=== PATIENT | female | born 1980 | race Caucasian/White ===

== ENCOUNTER 2016-11-20 12:58 | Inpatient (IN) ==
[2016-11-20 13:39] LABS: Basophils # 0.1 10*3/uL (0.0-0.2); Basophils % 0.5 % (0.0-0.8); Eosinophils % 0.4 % (0.00-10.9); Hemoglobin 12.9 GM/DL (12.0-16.0); Immature Granulocytes % 0.4 %; Immature Granulocytes Absolute 0.04 #; Lymphocytes # 1.4 10*3/uL (1.4-4.0); Lymphocytes % 12.8 % (21.3-54.2); Mean Corpuscular HGB Conc 34.9 GM/DL (32-36); Mean Corpuscular Hemoglobin 32 PG (27-34); Mean Corpuscular Volume 91.8 FL (87-102); Mean Platelet Volume 9.2 FL (9.6-12.0); Monocytes % 9.3 % (1.7-12.7); Neutrophils # 8.6 10*3/uL (1.4-7.4); Neutrophils % 76.6 % (38.7-73.9); Platelet Count 286 T/CUMM (130-400); Red Blood Count 4.03 MC/CUMM (3.8-5.5); Red Cell Distribution Width 13.6 % (9.3-17.3); White Blood Count 11.2 T/CUMM (4-12)
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
[2016-11-20] MEDS ORDERED: ONDANSETRON 4 MG/2 ML VIAL ONE (13:52)
[2016-11-20] MEDS ORDERED: MORPHINE 2 MG/1 ML SYRINGE ONE (13:52)
[2016-11-20 13:53] LABS: Amorphous Crystals,Urine Occasional /HPF (Few); Apearance,Urine CLOUDY (Clear); Bilirubin,Urine Negative (Negative); Blood, Urine Negative (Negative); Glucose,Urine (UA) Negative (Negative); Ketones,Urine 5 mg/dL (Negative); Nitrite,Urine Negative (Negative); Protein,Urine Negative; RBC,Urine 3 /HPF (0-4); Urine Color Amber (Yellow); Urine Specific Gravity 1.016 (1.001-1.035); Urine Urobilinogen < 2.0 EU/DL (0.2-1.0)
[2016-11-20 13:59] LABS: Alanine Aminotransferase 25 U/L (13-56); Albumin 4.2 G/DL (3.4-5.0); Alkaline Phosphatase 66 U/L (45-117); Amylase 28 U/L (25-115); Aspartate Amino Transferase 27 U/L (0-37); Blood Urea Nitrogen 15 MG/DL (7-18); Glucose 108 MG/DL (74-106); INR 1.1; Osmolality,Calculated 278.5 MOS/KG (273-304); PT Patient Result 11.3 SECS; Partial Thromboplastin Time 26.5 SECS (0-40); Potassium 3.5 MMOL/L (3.5-5.1); Sodium 139 MMOL/L (136-145)
[2016-11-20] MEDS ORDERED: ONDANSETRON 4 MG/2 ML VIAL IV STA (14:02)
[2016-11-20] MEDS ORDERED: MORPHINE 2 MG/1 ML SYRINGE IV STA (14:03)
[2016-11-20] MEDS ORDERED: DIPH/TET/ACEL PERT BOOSTER VACCINE 0.5 ML VIAL IM ONE ×2 (14:04→14:12)
[2016-11-20 14:07] LABS: Barbiturates Screen,Urine Negative (Negative); Benzodiazepines Screen,Urine Positive (Negative); Cannabinoid Screen,Urine Positive (Negative); Opiate Screen,Urine Positive (Negative); Phencyclidine Screen,Urine Negative (Negative)
--- NOTE | 2016-11-20 14:15 | XRay Report ---
Left tibia and fibula. Indication: Injury with pain. No prior studies. No osseous, articular, or soft tissue abnormality is seen. PROCEDURE INTERPRETED AT [facility] DEPARTMENT OF RADIOLOGY Final Report Signed by: Dr. Es Blanco
[2016-11-20] MEDS ORDERED: ceFAZolin 1,000 MG VIAL ONE (14:19)
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
[2016-11-20] MEDS ORDERED: ceFAZolin 2,000 MG in SODIUM CHLORIDE 0.9% 100 ML IV STA (14:28)
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
[2016-11-20] MEDS ORDERED: fentaNYL 100 MCG/2 ML VIAL ONE ×2 (14:51→17:40)
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
[2016-11-20] MEDS ORDERED: MAGNESIUM HYDROXIDE SUSP 30 ML UDCUP PO PRN (15:17)
[2016-11-20] MEDS ORDERED: ONDANSETRON 4 MG/2 ML VIAL IV PRN (15:18)
[2016-11-20] MEDS ORDERED: NALOXONE 0.4 MG/ML VIAL IV PRN (15:18)
[2016-11-20] MEDS ORDERED: HYDROmorphone 2 MG/1 ML VIAL IV PRN (15:18)
[2016-11-20] MEDS ORDERED: GENTAMICIN 80 MG/2 ML VIAL ONE (15:31)
--- NOTE | 2016-11-20 17:14 | XRay Report ---
History is status post ORIF of right ankle fracture Right ankle, 3 views 34 seconds fluoroscopy time providing the operating room during a plate and screw fixation of the distal fibular fracture with 2 screws in the medial malleolus is well. There is been reduction of prior ankle dislocation. 3 spot images of the right ankle captured and stored. The films are presumed adequate for the intended purposes. PROCEDURE INTERPRETED AT [facility] DEPARTMENT OF RADIOLOGY Final Report Signed by: Dr. Genesis Blanco
--- NOTE | 2016-11-20 17:18 | Anesthesia Post-Op ---
Anesthesia Post OP - Post Ansesthetic Evaluation Patient seen in post op: Yes Resp: within normal limits CV: within normal limits Mental: within normal limits Temp: within normal limits [id number]: within normal limits Nausea and Vomiting: within normal limits Pain: within normal limits
[2016-11-20] MEDS: KETOROLAC 30 MG/1 ML VIAL IV PRN (17:30)
[2016-11-20] MEDS ORDERED: KETOROLAC 30 MG/1 ML VIAL ONE (17:32)
[2016-11-20] MEDS ORDERED: SEVOFLURANE 1 UNIT/15 MINUTE INH ONE (17:39)
[2016-11-20] MEDS ORDERED: MIDAZOLAM 2 MG/2 ML VIAL ONE (17:40)
[2016-11-20] MEDS ORDERED: LACTATED RINGERS 1,000 ML IV ONE (17:40)
[2016-11-20] MEDS ORDERED: GENTAMICIN INJ 100 MG in PREMIX 1 EACH IV ONE (18:00)
[2016-11-20] MEDS: LACTATED RINGERS 1,000 ML IV SCH (18:09)
[2016-11-20] MEDS: HYDROmorphone PCA 30 MG/30 ML SYRINGE IV SCH (18:42)
[2016-11-20] MEDS: ACETAMINOPHEN 500 MG TABLET PO SCH (20:48)
[2016-11-21] MEDS: LACTATED RINGERS 1,000 ML IV SCH (01:31)
[2016-11-21] MEDS: ACETAMINOPHEN 500 MG TABLET PO SCH ×3 (02:07→13:49)
[2016-11-21] MEDS ORDERED: PROPOFOL 200 MG/20 ML VIAL IV ONE ×2 (06:48→17:15)
[2016-11-21] MEDS ORDERED: ONDANSETRON 4 MG/2 ML VIAL ONE ×2 (06:48→17:15)
[2016-11-21] MEDS ORDERED: LIDOCAINE 2% 5 ML VIAL ONE (06:48)
[2016-11-21] MEDS ORDERED: ROPIVACAINE 0.5% 30 ML VIAL ONE ×2 (07:34→07:49)
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
[2016-11-21] MEDS ORDERED: MIDAZOLAM 2 MG/2 ML VIAL ONE ×2 (08:02→10:33)
[2016-11-21] MEDS ORDERED: HYDROmorphone 2 MG/1 ML VIAL IV PRN (08:03)
[2016-11-21] MEDS ORDERED: ONDANSETRON 4 MG/2 ML VIAL IV PRN (08:03)
[2016-11-21] MEDS ORDERED: LACTATED RINGERS 1,000 ML IV SCH (08:30)
[2016-11-21] MEDS ORDERED: ENOXAPARIN 40 MG/0.4 ML SYRINGE SUBCUT SCH (09:00)
--- NOTE | 2016-11-21 09:17 | Orthopedic Progress Note ---
Assessment and Plan (1) Fracture of ankle, bimalleolar, right, open Status: Acute Assessment and plan: Grade 2 open right ankle fracture: DVT prophylaxis Begin physical therapy today Continue schedule antibiotics for 48 hours Plan to discharge home on Saturday I again discussed the severity of the ankle injury with she and her mom including risks of infection and posttraumatic arthritis Current Visit: Yes Qualifiers: Encounter type: initial encounter Open fracture type: open type I or II Qualified Code(s): S82.841B - Displaced bimalleolar fracture of right lower leg , initial encounter for open fracture type I or II Orthopedics - Subjective Interval history: Patient back in her room status post I&D and closure. Her pain is currently controlled. On exam, she has brisk capillary refill in the foot, she can wiggle her toes up and down. Exam - Constitutional Vitals: Period Temp Pulse Resp BP Sys/Kohli Pulse Ox Last 24 Hr 96.9 F-98.0 F 60-94 15-20 93-128/53-89 97-100 Results - Labs CBC & BMP: 11/20/16 13:21 11/20/16 13:21
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
[2016-11-21] MEDS ORDERED: ESTRADIOL TRANSDERM SCH (10:00)
[2016-11-21] MEDS ORDERED: fentaNYL 100 MCG/2 ML VIAL ONE (10:33)
[2016-11-21] MEDS: clonazePAM 0.5 MG TABLET PO PRN ×2 (11:48→19:48)
[2016-11-21] MEDS: SODIUM CHLORIDE 0.9% 1,000 ML IV SCH ×2 (13:49→22:06)
[2016-11-21] MEDS ORDERED: GENTAMICIN INJ 300 MG in SODIUM CHLORIDE 0.9% 100 ML IV SCH (17:00)
[2016-11-21] MEDS ORDERED: SUCCINYLCHOLINE 200 MG/10 ML VIAL ONE (17:15)
[2016-11-21] MEDS ORDERED: LIDOCAINE 1% 5 ML VIAL ONE (17:15)
[2016-11-21] MEDS ORDERED: ROCURONIUM 100 MG/10 ML VIAL IV ONE (17:15)
[2016-11-21] MEDS ORDERED: DEXAMETHASONE 10 MG/1 ML VIAL ONE (17:15)
[2016-11-21] MEDS: GENTAMICIN INJ 200 MG in SODIUM CHLORIDE 0.9% 100 ML IV SCH (17:33)
[2016-11-21] MEDS: HYDROmorphone PCA 30 MG/30 ML SYRINGE IV SCH (17:35)
[2016-11-21] MEDS: KETOROLAC 30 MG/1 ML VIAL IV PRN (19:08)
[2016-11-21] MEDS: ACETAMINOPHEN 325 MG TABLET PO PRN (19:47)
[2016-11-21] MEDS: ZALEPLON 5 MG CAPSULE PO SCH (21:40)
[2016-11-22] MEDS: KETOROLAC 30 MG/1 ML VIAL IV PRN (03:26)
[2016-11-22] MEDS: LEVOTHYROXINE 88 MCG TABLET PO SCH (06:29)
--- NOTE | 2016-11-22 07:22 | Orthopedic Progress Note ---
Assessment and Plan (1) Fracture of ankle, bimalleolar, right, open Status: Acute Assessment and plan: Grade 2 open right ankle fracture: DVT prophylaxis Continue PT, NWB RLE Elevate RLE d/c home tomorrow f/u 10-14 days with Current Visit: Yes Qualifiers: Encounter type: initial encounter Open fracture type: open type I or II Qualified Code(s): S82.841B - Displaced bimalleolar fracture of right lower leg , initial encounter for open fracture type I or II Orthopedics - Subjective Interval history: Pt c/o pain. Narcotics have been held due to low BP exam unchanged from previous Exam - Constitutional Vitals: Period Temp Pulse Resp BP Sys/Kohli Pulse Ox Last 24 Hr 97.1 F-98.6 F 60-105 16-20 85-129/45-84 20-100 Results - Labs CBC & BMP: 11/20/16 13:21 11/20/16 13:21 Specialty Discharge - Follow Up or Referrals Follow up with: Mushtaq Avalos Jr., MD [Physician] - 12/04/16 12:35 pm (10-14 days)
[2016-11-22] MEDS: ACETAMINOPHEN 325 MG TABLET PO PRN (07:27)
[2016-11-22] MEDS: IBUPROFEN 800 MG TABLET PO PRN ×2 (08:52→17:32)
[2016-11-22] MEDS: ENOXAPARIN 40 MG/0.4 ML SYRINGE SUBCUT SCH (08:53)
[2016-11-22] MEDS: CITALOPRAM 20 MG TABLET PO SCH (08:53)
--- NOTE | 2016-11-22 14:51 | XRay Report ---
XR ankle 2V RT Indication: Ankle fracture. ORIF. Right ankle 2 views: Last or splinting is present. Plate and screw fixation of a distal fibular fracture and cancellous screw fixation of a medial malleolar fracture now present. Fracture fragments are in anatomic alignment. Soft tissue swelling and skin era overlie the region. Impression: Anatomic alignment following ORIF ankle fracture. PROCEDURE INTERPRETED AT [facility] DEPARTMENT OF RADIOLOGY Final Report Signed by: Sage Zhang M.D.
[2016-11-22] MEDS: GENTAMICIN INJ 200 MG in SODIUM CHLORIDE 0.9% 100 ML IV SCH (15:05)
[2016-11-22] MEDS: ZALEPLON 5 MG CAPSULE PO SCH (20:40)
[2016-11-23] MEDS: LEVOTHYROXINE 88 MCG TABLET PO SCH (06:09)
[2016-11-23 07:39] VITALS: BP 111/69
[2016-11-23] MEDS: IBUPROFEN 800 MG TABLET PO PRN (07:57)
[2016-11-23] MEDS: CITALOPRAM 20 MG TABLET PO SCH (09:07)
[2016-11-23] MEDS: ENOXAPARIN 40 MG/0.4 ML SYRINGE SUBCUT SCH (09:07)
--- NOTE | 2016-11-23 10:28 | Orthopedic Progress Note ---
Assessment and Plan (1) Fracture of ankle, bimalleolar, right, open Status: Acute Assessment and plan: Continued care: Nonweightbearing right lower extremity, rest, ice, elevation right lower extremity. Pain control, DVT prophylaxis as per Dr. Villafana Patient and mother requested follow-up with Dr. Thomas postoperatively Current Visit: Yes Qualifiers: Encounter type: initial encounter Open fracture type: open type I or II Qualified Code(s): S82.841B - Displaced bimalleolar fracture of right lower leg , initial encounter for open fracture type I or II Orthopedics - Subjective Interval history: Patient seen and examined. Mother in room. No complaints. Ready and requesting to go home Exam - Constitutional Vitals: Period Temp Pulse Resp BP Sys/Kohli Pulse Ox Last 24 Hr 97.5 F-100.2 F 81-98 18-20 93-125/42-70 91-100 - Extremities Exam Extremities exam: Present: normal inspection (Right ankle: Dressing clean, dry , intact. Good active range of motion toes) Results - Labs CBC & BMP: 11/20/16 13:21 11/20/16 13:21 - Diagnostic Findings Procedure: X-ray: image reviewed by me, report reviewed by me Specialty Discharge - Follow Up or Referrals Follow up with: Yoni Thomas Jr., MD [Physician] - (In 1-2 weeks)
== END 2016-11-23 11:45 | disposition home or self-care (01) | DRG 494 ==
LOC: N.ED 12:58 → N.SDS 14:47 → N.SDSINP 14:47 → N.3E 14:47 → N.SDSINP 14:51 → UNDODEPER 14:56 → N.SDSINP 14:56 → N.3E 15:17
PROVIDERS: ADMIT Orthopaedic Surgery; ATTEND Orthopaedic Surgery